=== PATIENT | female | born 1960 | race Caucasian/White ===

== ENCOUNTER 2018-10-24 16:25 | Emergency (ER) | payer OTHER ==
[~2018-10-24] VITALS: Ht 160 cm; Wt 46.7 kg
[~2018-10-24 16:25] MED LIST: ACET325 PO; ALBU90OI; ALBU90OI6 INH; ALBU90OI61 INH; AZIT250 PO; BACL20 PO; BENZ100A PO; Baclofen10 MG PO; CALMAGZIN PO; CELE200 PO; CODGUAEL PO; CRUTCH4 USE; CYCL10 PO; DIPH50 PO; DULO30; DULO60 PO; ESTR2 PO; FLUSAL2505 IH; FLUSAL2505 INH; Flovent Diskus50 MCG; GABA300 PO; GUAI600T33 PO; GUAPSEER; HYDACE10B PO; Hard Nails2500 MCG PO; IBUP800; IBUP800 PO; LEVFLO500 PO; META800; MONT10T PO; MULVITMIND PO; NAPR500 PO; Naprosyn500 MG PO; OMEP20ER PO; OXYC15ER PO; PIRO10 PO; PIRO20; PRED10 PO; PREG200 PO; PREG75 PO; PROM25 PO; PSEU120ER PO; PSEU30 PO; QUET100 PO; QUET200 PO; RXHYDACE; RXHYDMOR2 PO; RXSULTRIDS; RXSULTRIDS PO; Robaxin-750750 MG PO; SUMA25 PO; TIOT18; TIOT18 INH; TRAM50 PO; Ultram50 MG PO
[2018-10-24 17:03] LABS: BASOPHILS ABSOLUTE AUTO 0.07 K/mm3 (0.00-0.23); BASOPHILS PERCENT AUTO 1 % (0-2); EOSINOPHILS ABSOLUTE AUTO 0.17 K/mm3 (0.00-0.68); EOSINOPHILS PERCENT AUTO 1 % (0-6); Hemoglobin 12.8 g/dL (11.5-16.0); IMMATURE GRAN ABSOLUTE AUTO 0.05 K/mm3 (0.00-0.10); IMMATURE GRAN PERCENT AUTO 0 % (0-1); LYMPHOCYTES ABSOLUTE AUTO 5.73 K/mm3 (0.84-5.20); LYMPHOCYTES PERCENT AUTO 41 % (21-46); MONOCYTES ABSOLUTE AUTO 0.89 K/mm3 (0.16-1.47); MONOCYTES PERCENT AUTO 6 % (4-13); Mean Corpuscular Volume 91 fL (80-100); Mean Platelet Volume 9.3 fL (9.1-12.4); NEUTROPHILS ABSOLUTE AUTO 6.99 K/mm3 (1.96-9.15); NEUTROPHILS PERCENT AUTO 50 % (41-73); Platelet Count 388 K/mm3 (150-400); RDW Coefficient Variation 13.6 % (11.7-14.2); RDW Standard Deviation 44.9 fL (35.1-46.3); Red Blood Cell Count 4.41 M/mm3 (3.80-5.20)
[2018-10-24 17:30] LABS: Alanine Aminotransfer (ALT/SGP 23 U/L (12-78); Albumin, Blood 3.8 g/dL (3.4-5.0); Alk Phos 121 U/L (50-136); Anion Gap 2 mmol/L (6-16); Aspartate Aminotrans (AST/SGOT 25 U/L (12-37); Bilirubin, Total 0.3 mg/dL (0.1-1.0); Blood Urea Nitrogen 12 mg/dL (8-24); Bun/Creatinine Ratio 17.2 (12.0-20.0); CO2, Blood 32 mmol/L (21-32); Chloride, Blood 102 mmol/L (98-108); Globulin, Blood 3.8 g/dL (2.2-4.0); Glomerular Filtration Rate >60 (60-); Glucose, Blood 83 mg/dL (70-99); Potassium, Blood 3.1 mmol/L (3.5-5.5); Sodium, Blood 136 mmol/L (136-145); Total Protein, Blood 7.6 g/dL (6.4-8.2)
[2018-10-24] MEDS ORDERED: CEPH500 PO (18:01)
== END 2018-10-24 18:41 | disposition home or self-care (01) ==
LOC: ER 16:25
PROVIDERS: Physician Assistant
DX: L03.012 Cellulitis of left finger (principal); L02.512 Cutaneous abscess of left hand; F32.9 Major depressive disorder, single episode, unspecified; F17.290 Nicotine dependence, other tobacco product, uncomplicated; Z88.4 Allergy status to anesthetic agent; Z79.899 Other long term (current) drug therapy
CPT/HCPCS: 36415; 80053; 83605; 85025; 87070; 87075; 87147; 87205; 96365; 99283-25; J0690

== ENCOUNTER → 2019-02-10 | Outpatient (CLI) | payer OTHER ==
[~2019-02-10] MED LIST changes: +CEPH500 PO
[2019-02-11 13:44] LABS: Stool Occult Bld Immuno 1 Negative (NEGATIVE)
== END | disposition home or self-care (01) ==
LOC: LAB 09:00 → LAB SHORT 09:00
PROVIDERS: Student in an Organized Health Care Education/Training Program
DX: Z12.11 Encounter for screening for malignant neoplasm of colon (principal)
CPT/HCPCS: G0328

== ENCOUNTER 2020-03-06 08:56 | Emergency (ER) | payer OTHER ==
[~2020-03-06] VITALS: Ht 160 cm; Wt 47.2 kg
[2020-03-06] MEDS ORDERED: HYDACE10B PO (11:40)
== END 2020-03-06 12:54 | disposition home or self-care (01) ==
LOC: ER 08:56
DX: S52.352A Displaced comminuted fracture of shaft of radius, left arm, initial encounter for closed fracture (principal); S52.612A Displaced fracture of left ulna styloid process, initial encounter for closed fracture; S00.83XA Contusion of other part of head, initial encounter; F17.290 Nicotine dependence, other tobacco product, uncomplicated; Z88.8 Allergy status to other drugs, medicaments and biological substances; Z79.899 Other long term (current) drug therapy
CPT/HCPCS: 25605; 29125; 70450; 70486; 71045; 72125; 73090; 73100; 99152; 99285-25; J2704; J7030

== ENCOUNTER 2020-03-11 17:04 | Emergency (ER) | payer OTHER ==
[~2020-03-11] VITALS: Ht 160 cm; Wt 47.6 kg
[2020-03-11] MEDS ORDERED: Amphetamine Sal15 MG (18:04)
[2020-03-11] MEDS ORDERED: DESVENLAFAXINE100 M3 PO (18:05)
[2020-03-11] MEDS ORDERED: CLON.5 PO (18:06)
[2020-03-11] MEDS ORDERED: Amitriptyline H25 MG PO (18:06)
[2020-03-11] MEDS ORDERED: MYRBETRIQ50 MG PO (18:08)
[2020-03-11] MEDS ORDERED: REMERON15 M1 PO (18:08)
[2020-03-11] MEDS ORDERED: SOLIFENACIN SUCC5 MG PO (18:09)
[2020-03-11] MEDS ORDERED: MONT10T PO (18:10)
[2020-03-11] MEDS ORDERED: LORA10ER PO (18:11)
[2020-03-11] MEDS ORDERED: BUDESONIDE-FO10.2 G2 INH (18:13)
[2020-03-11] MEDS ORDERED: Ventolin/Prove6.7 GM INH (18:13)
[2020-03-11] MEDS ORDERED: OXYACE7.5T PO (18:21)
== END 2020-03-11 18:50 | disposition home or self-care (01) ==
LOC: ER 17:04
DX: S62.102A Fracture of unspecified carpal bone, left wrist, initial encounter for closed fracture (principal); F17.290 Nicotine dependence, other tobacco product, uncomplicated; Z88.8 Allergy status to other drugs, medicaments and biological substances; Z79.899 Other long term (current) drug therapy; V89.2XXA Person injured in unspecified motor-vehicle accident, traffic, initial encounter
CPT/HCPCS: 99282; A9270

== ENCOUNTER 2020-03-18 10:01 | Day surgery (SDC) | payer OTHER ==
[~2020-03-18] VITALS: Ht 160 cm; Wt 51.0 kg
[~2020-03-18 10:01] MED LIST changes: +Amitriptyline H25 MG PO; +Amphetamine Sal15 MG; +BUDESONIDE-FO10.2 G2 INH; +CLON.5 PO; +DESVENLAFAXINE100 M3 PO; +LORA10ER PO; +MYRBETRIQ50 MG PO; +OXYACE7.5T PO; +REMERON15 M1 PO; +SOLIFENACIN SUCC5 MG PO; +Ventolin/Prove6.7 GM INH
--- NOTE | 2020-03-18 11:09 | NUR ---
03/18/20 1109 VIC TATE PATIENT GIVEN A BREATHING TREATMENT PER DR MENDENHALL, DR THOMAS IN TO SEE THE PATIENT, DR. THOMAS NOTIFIED OF A RASH TO THE PATIENT'S LEFT FOOT, DR. THOMAS VISUALIZED RASH AND ORDERS OBTAINED TO CONTINUE WITH SURGERY, PATIENT ENCOURAGED TO FOLLOW UP WITH HER PRIMARY DOCTOR IN REGARDS TO THE RASH
--- NOTE | 2020-03-18 13:08 | NUR ---
03/18/20 1308 [place],Jacqueline RECIEVED FROM OR UNRESPONSIVE. RESPONDS WITH EYE OPENING TO TOUCH AT THIS TIME. NOT FOLLOWING COMMANDS. ON 15L FACE TENT PER DR. MENDENHALL. O2 SATS ABOVE 92%. ATTEMPT TO WEAN TO 10L FACE TENT.
--- NOTE | 2020-03-18 13:57 | NUR ---
03/18/20 1357 [place],Jacqueline 25MCG OF F[place] GIVEN ON ARRIVAL TO STEP DOWN FOR PAIN. FLACC 6. ASSISTED TO CHAIR, ICED AND ELEVATED ARM. PT. IS COOPERATIVE BUT STILL AGITATED. SQUIRMING AND UNCOMFORTABLE. AFTER ABOUT 5 MIN. PT. IS QUIET AND DOZING.
== END 2020-03-18 14:42 | disposition home or self-care (01) ==
LOC: ORSCSDS 10:01
PROVIDERS: Orthopaedic Surgery
PROC: 0PSJ04Z Reposition Left Radius with Internal Fixation Device, Open Approach (ICD-10-PCS; principal; 2020-03-18 11:00)
DX: S52.502A Unspecified fracture of the lower end of left radius, initial encounter for closed fracture (principal); J44.9 Chronic obstructive pulmonary disease, unspecified; Z87.891 Personal history of nicotine dependence; M79.7 Fibromyalgia; Z79.899 Other long term (current) drug therapy
CPT/HCPCS: C1713; J0171; J0690; J1100; J1885; J2250; J2405; J2704; J3010; J7030

== ENCOUNTER 2021-03-03 00:35 | Emergency (ER) | payer OTHER ==
[~2021-03-03] VITALS: Ht 152.4 cm; Wt 56.7 kg
[2021-03-03 04:13] LABS: BASOPHILS ABSOLUTE AUTO 0.04 K/mm3 (0.00-0.23); BASOPHILS PERCENT AUTO 1 % (0-2); EOSINOPHILS ABSOLUTE AUTO 0.18 K/mm3 (0.00-0.68); EOSINOPHILS PERCENT AUTO 3 % (0-6); Hematocrit 41.5 % (33.0-51.0); Hemoglobin 13.3 g/dL (11.5-16.0); IMMATURE GRAN ABSOLUTE AUTO 0.01 K/mm3 (0.00-0.10); IMMATURE GRAN PERCENT AUTO 0 % (0-1); LYMPHOCYTES ABSOLUTE AUTO 2.62 K/mm3 (0.84-5.20); LYMPHOCYTES PERCENT AUTO 45 % (21-46); MONOCYTES ABSOLUTE AUTO 0.67 K/mm3 (0.16-1.47); MONOCYTES PERCENT AUTO 12 % (4-13); Mean Corpuscular HGB 28.8 pg (26.0-34.0); Mean Corpuscular Volume 90 fL (80-100); Mean Platelet Volume 8.7 fL (9.1-12.4); NEUTROPHILS ABSOLUTE AUTO 2.29 K/mm3 (1.96-9.15); NEUTROPHILS PERCENT AUTO 39 % (41-73); Platelet Count 298 K/mm3 (150-400); RDW Coefficient Variation 14.3 % (11.7-14.2); RDW Standard Deviation 46.9 fL (35.1-46.3); Red Blood Cell Count 4.62 M/mm3 (3.80-5.20); White Blood Cell Count 5.81 K/mm3 (4.00-11.30)
[2021-03-03 04:25] LABS: U Amphetamine Screen DETECTED; U Barbituate Screen Not Detected; U Benzodiazapine Screen Not Detected; U Buprenorphine Screen Not Detected; U Cannabinoids Screen DETECTED; U Cocaine Screen Not Detected; U Methadone Screen Not Detected; U Methamphetamine Screen DETECTED; U Opiates Screen Not Detected; U Oxycodone Screen Not Detected; U Phencyclidine Screen Not Detected; U Propoxyphene Screen Not Detected
[2021-03-03 04:31] LABS: Alanine Aminotransfer (ALT/SGP 31 U/L (12-78); Albumin, Blood 3.4 g/dL (3.4-5.0); Alk Phos 92 U/L (50-136); Anion Gap 2 mmol/L (6-16); Aspartate Aminotrans (AST/SGOT 30 U/L (12-37); Bilirubin, Total 0.3 mg/dL (0.1-1.0); Blood Urea Nitrogen 13 mg/dL (8-24); Bun/Creatinine Ratio 20.7 (12.0-20.0); CO2, Blood 37 mmol/L (21-32); Calcium, Blood 9.6 mg/dL (8.5-10.1); Chloride, Blood 105 mmol/L (98-108); Creatinine, Blood 0.63 mg/dL (0.40-1.00); Ethanol (Alcohol), Blood, Med <3 mg/dL; Globulin, Blood 3.4 g/dL (2.2-4.0); Glomerular Filtration Rate >60 (60-); Glucose, Blood 109 mg/dL (70-99); Potassium, Blood 4.1 mmol/L (3.5-5.5); Sodium, Blood 144 mmol/L (136-145); Total Protein, Blood 6.8 g/dL (6.4-8.2)
== END 2021-03-03 05:00 | disposition home or self-care (01) ==
LOC: ER 00:35
PROVIDERS: Student in an Organized Health Care Education/Training Program
DX: F15.10 Other stimulant abuse, uncomplicated (principal); F17.290 Nicotine dependence, other tobacco product, uncomplicated; M79.7 Fibromyalgia; Z79.899 Other long term (current) drug therapy; Z88.4 Allergy status to anesthetic agent
CPT/HCPCS: 36415; 80053; 83690; 85025; 99285; G0480

== ENCOUNTER → 2021-05-05 | Outpatient (CLI) | payer OTHER ==
[2021-05-09 14:11] LABS: HPV 16 Negative (Negative); HPV 18 Negative (Negative); HPV OTHER HR TYPES Negative (Negative)
== END | disposition home or self-care (01) ==
LOC: LAB SHORT 13:32
PROVIDERS: Family Medicine
DX: Z01.419 Encounter for gynecological examination (general) (routine) without abnormal findings (principal)
CPT/HCPCS: 87624; G0123

== ENCOUNTER 2022-04-29 18:09 | Emergency (ER) | payer OTHER ==
[~2022-04-29] VITALS: Ht 165.1 cm; Wt 54.4 kg
[2022-04-29] MEDS ORDERED: AMOCLA875 PO (19:25)
== END 2022-04-29 19:37 | disposition home or self-care (01) ==
LOC: ER 18:09
DX: K04.7 Periapical abscess without sinus (principal); Z88.8 Allergy status to other drugs, medicaments and biological substances; Z79.899 Other long term (current) drug therapy
CPT/HCPCS: A9270